=== PATIENT | male | born 2005 | race Caucasian/White ===

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

== ENCOUNTER 2023-06-20 13:45 | Emergency (ER) | payer MEDICAID, OTHER, SELFPAY ==
[~2023-06-20] VITALS: Ht 180.3 cm; Wt 66.3 kg
[2023-06-20 13:46] VITALS: BP 122/69; O2SAT 98
[2023-06-20] MEDS ORDERED: cefTRIAXone 500MG VIAL IM ONE (15:45)
[2023-06-20] MEDS ORDERED: LIDOCAINE 1% SDV 5ML VIAL DILUENT ONE (15:45)
[2023-06-20 16:14] VITALS: TEMP 97.8
[2023-06-20 16:34] LABS: HEPATITIS B SURFACE ANTIBODY NEGATIVE (POSITIVE)
[2023-06-20 16:59] LABS: HIV 1&2 SCREEN NEGATIVE (NEGATIVE)
[2023-06-20 17:07] LABS: HEPATITIS C VIRUS ABY INDEX 0.03 INDEX (<0.8)
== END 2023-06-20 16:16 | disposition home or self-care (01) ==
LOC: M ED 13:45
DX: Z20.2 Contact with and (suspected) exposure to infections with a predominantly sexual mode of transmission (principal)
CPT/HCPCS: 86706; 86780; 86803; 87340; 87389; 87490; 87590; 87661; 96372; 99283; J0696